=== PATIENT | female | born 1980 | race Caucasian/White ===

== ENCOUNTER 2016-05-05 15:30 | Inpatient (IN) | payer OTHER ==
[2016-05-02 16:05] VITALS: BMI 29.7
[2016-05-06] MEDS ORDERED: LACTATED RINGERS SOLUTION 1,000 ML IV SCH (12:15)
--- NOTE | 2016-05-06 13:09 | HP ---
Past Medical History - Primary Care Physician PCP:: Deidre Soares - Admission Chief Complaint: 36 yrs , LMP 04/22/16 has multiple large fibroids , & menorrhagia is admitted today for multiple myomectomy possible hysterctomy if necessary . History of Present Illness: patient was diagnosed large fibroids during . she had uneventful course during pregn regarding fibroids . she had primary c/section due to failed induction of labor at 41.3 weeks gestation om 07/30/15 During c/section I noted Right side 5 cm submucous fibroid, Left side above lower segment [id number] cm intramural fibroid, & large subserosal & intramural fundal fibroid 12 cm . .Post she did not c/o pain but she c/o heavy periods with clots. she continued to take her pmv & iron pills . 12/29/15 pelvic tvs was done which was reported as large ut 18.6x12x7.8cm . 3 suzy fibroids , fundal fiibroid 94x8.5x6.6 cm . 04/12/16 Pelvic MRI ut 51.6x 11.6x 9.6 cm /Anterior myoma rt of the midline 9.0x8.5x6.2cm . 2nd large myoma anteriorproximal to lower segment 5.5x5.1x5.0 cm , 3rd posterior 1.7 cm subserosal pyoma, 4th in posterior uterine body 1.6cm in size . Left adnexa shows 3-4 cm unilocular cyst , follocular cysts last pa 10/29/14 NILM past MH 28-30 days x5-6 days, heavy mild cramps menarche at age 10 yrs History Source: Patient, Medical Record Limitations to Obtaining History: No Limitations - Past Medical History LOADING MANAGER: No: CVA Cardiovascular: Yes: HTN (for 3 yrs. during pregn she was on po aldomet. currently hydrochlorthiazide 12.5 mg po daily) Pulmonary: No: Asthma Gastrointestinal: Yes: Constipation Renal/: No: UTI ...: 2 ...Para: 1 ...Term: 1 ...Spon : 1 ...LMP: 04/22/16 Heme/Onc: Yes: Anemia (pt on po iron & vit) Infectious Disease: Yes: STD's (past h/o chlamydia , h/o HSV rx po valtex h/ o HPV) Psych: No: Addictions, Anxiety, Bipolar, Depression Endocrine: Yes: Other (h/o gstational diabetes duringlast , rx po glyburide 2.5 mg bid. post delivery BGM were normal) - Past Surgical History Past Surgical History: Yes: None, () Hx Myomectomy: No Hx Transabdominal Cerclage: No - Smoking History Smoking history: Never smoked Have you smoked in the past 12 months: No - Alcohol/Substance Use Hx Alcohol Use: No History of Substance Use: reports: None - Social History History of Recent Travel: No Home Medications - Allergies Allergies/Adverse Reactions: Allergies Allergy/AdvReac Type Severity Reaction Status Date / Time No Known Allergies Allergy Verified 07/29/15 12:29 - Home Medications Home Medications: Ambulatory Orders Vitamins (Sjr) - 1 tab PO DAILY 07/03/15 Acetaminophen [Tylenol .Regular Strength -] 650 mg PO Q4H PRN #0 tablet Ferrous Sulfate [Feosol] 325 mg PO BID ud 07/31/15 Hydrochlorothiazide [Hctz -] 12.5 mg PO DAILY 05/02/16 Ibuprofen [Motrin -] 600 mg PO TID PRN 05/02/16 Family Disease History - Family Disease History Family Disease History: Diabetes: Mother, Heart Disease: Father (hypertension ) Review of Systems - Review of Systems Constitutional: reports: No Symptoms Eyes: reports: No Symptoms HENT: reports: No Symptoms Neck: reports: No Symptoms Cardiovascular: reports: No Symptoms Respiratory: reports: No Symptoms Gastrointestinal: reports: No Symptoms Genitourinary: reports: Frequency (urination), Vaginal Bleeding (heavy periods) Breasts: reports: No Symptoms Reported Musculoskeletal: reports: No Symptoms Integumentary: reports: No Symptoms Neurological: reports: No Symptoms Endocrine: reports: No Symptoms Hematology/Lymphatic: reports: No Symptoms Psychiatric: reports: No Symptoms Physical Exam-MANAGER MOLECULAR Vital Signs: Selected Entries 05/02/16 16:00 Temperature 98.0 F Pulse Rate 100 H Blood Pressure 151/82 Weight 190 lb Constitutional: Yes: Well Nourished, No Distress Eyes: Yes: WNL HENT: Yes: WNL Neck: Yes: WNL Cardiovascular: Yes: WNL Respiratory: Yes: WNL Gastrointestinal: Yes: WNL, Normal Bowel Sounds ...Rectal Exam: Yes: WNL, Other Pelvis: Yes: Mass (16- weeks abdominopelvic mass palpable firm mobile non teder) External Genitalia: Yes: Normal Internal Exam Deferred: Yes Vaginal Exam: Yes: Normal. No: Bleeding, Condyloma Cervix: Yes: Normal. No: Bleeding, Condyloma Uterus: Yes: Anteverted, Enlarged (16.weeks, irregular, multiple fibroids) Adnexa: Not Palpable: Bilateral Breast(s): Yes: WNL Musculoskeletal: Yes: WNL Extremities: Yes: WNL. No: Calf Tenderness Edema: No Integumentary: Yes: Incision (old pfannensteil scar) Neurological: Yes: WNL, Alert, Oriented ...Motor Strength: WNL Psychiatric: Yes: WNL, Alert, Oriented Labs: Laboratory Tests 07/29/15 07/29/15 07/29/15 12:10 12:10 12:10 WBC RBC Hgb Hct Plt Count Neutrophils % Lymphocytes % Monocytes % Eosinophils % Basophils % Retic Count 1.42 Haptoglobin 121 INR PTT (Actin FS) 26.9 Sodium Potassium Chloride Carbon Dioxide BUN Creatinine Random Glucose Calcium Total Bilirubin AST ALT Alkaline Phosphatase Total Protein Albumin Beta HCG, Quant Urine Glucose (UA) Urine Ketones 05/03/16 05/03/16 05/03/16 11:00 11:05 11:05 WBC 6.0 RBC 4.23 D Hgb 12.7 D Hct 37.4 D Plt Count 299 D Neutrophils % 58.4 D Lymphocytes % 31.5 D Monocytes % 9.1 Eosinophils % 0.7 Basophils % 0.3 Retic Count Haptoglobin INR PTT (Actin FS) Sodium 139 Potassium 3.9 Chloride 104 Carbon Dioxide 26 D BUN 16 Creatinine 0.8 Random Glucose 104 D Calcium 9.3 Total Bilirubin 0.5 AST 12 L D ALT 16 Alkaline Phosphatase 63 Total Protein 7.5 Albumin 4.0 Beta HCG, Quant < 1.0 Urine Glucose (UA) Negative Urine Ketones Negative 05/03/16 11:05 WBC RBC Hgb Hct Plt Count Neutrophils % Lymphocytes % Monocytes % Eosinophils % Basophils % Retic Count Haptoglobin INR 1.11 PTT (Actin FS) Sodium Potassium Chloride Carbon Dioxide BUN Creatinine Random Glucose Calcium Total Bilirubin AST ALT Alkaline Phosphatase Total Protein Albumin Beta HCG, Quant neg Urine Glucose (UA) Urine Ketones Imaging - Results Chest X-ray: Report Reviewed Ultrasound: Report Reviewed MRI: Report Reviewed EKG: Report Reviewed Problem List - Problem (1) Uterine fibroid Code(s): D25.9 - LEIOMYOMA OF UTERUS, UNSPECIFIED Qualifiers: Uterine leiomyoma location: intramural Qualified Code(s): D25.1 - Intramural leiomyoma of uterus (2) Menorrhagia Code(s): N92.0 - EXCESSIVE AND FREQUENT MENSTRUATION WITH REGULAR CYCLE Assessment/Plan 36 yrs , previous c/s with multiple large myoma uterus with menorrhagia . plan; Abdominal Multiple Myomectomy & possible hysterectomy
[2016-05-06] MEDS ORDERED: VASOPRESSIN 20 UNITS/ML VIAL IV ONE (13:35)
[2016-05-06] MEDS ORDERED: MIDAZOLAM HCL 2 MG/2 ML SINGLE DOSE VIAL ONE ×2 (14:05)
[2016-05-06] MEDS ORDERED: ROPIVACAINE HCL 0.5% 30ML VIAL ONE (14:05)
[2016-05-06] MEDS ORDERED: PROPOFOL 20 ML ONE ×2 (14:34→16:04)
[2016-05-06] MEDS ORDERED: ROCURONIUM BROMIDE 50 MG/5 ML VIAL ONE ×4 (14:34→14:36)
[2016-05-06] MEDS ORDERED: ceFAZolin SODIUM 1 GM VIAL ONE (14:34)
[2016-05-06] MEDS ORDERED: ceFAZolin SODIUM 1 GM VIAL IVPB ONE (14:47)
[2016-05-06] MEDS ORDERED: DEXAMETHASONE SOD PHOSPHATE 4 MG/1 ML VIAL ONE (14:59)
[2016-05-06] MEDS ORDERED: KETOROLAC TROMETHAMINE 30 MG/1 ML VIAL ONE (15:38)
[2016-05-06] MEDS ORDERED: GLYCOPYRROLATE 0.2 MG/1 ML VIAL ONE (15:38)
[2016-05-06] MEDS ORDERED: NEOSTIGMINE METHYLSULFATE 0.5 MG/ML - 10 ML MDV ONE (15:38)
[2016-05-06] MEDS ORDERED: IBUPROFEN 800 MG/8 ML IJ IVPB PRN (16:15)
[2016-05-06] MEDS ORDERED: IBUPROFEN 600 MG TABLET (FP) PO PRN (16:23)
[2016-05-06] MEDS ORDERED: ACETAMINOPHEN 325 MG TABLET (FP) PO PRN (16:23)
[2016-05-06] MEDS: HYDROmorphone HCL CARPU-JECT 2 MG/1 ML DISP.SYRIN IVPUSH PRN ×4 (16:25→17:29)
[2016-05-06] MEDS ORDERED: ONDANSETRON 4 MG/2 ML VIAL IVPUSH PRN (16:26)
[2016-05-06] MEDS ORDERED: PROMETHAZINE HCL 25 MG/1 ML VIAL IVPUSH PRN (16:26)
--- NOTE | 2016-05-06 16:29 | OP ---
Operative Note - Note: Operative Date: 05/06/16 Pre-Operative Diagnosis: multiple large fibroids & menorrhagia Operation: Abdominal Multiple Myomectomy Findings: uterus large 16 weeks size . large 9 cm fundal fibroid which was intramural entering cavity on lt side , it was bilobed fibroid . 5 cm fibroid above isthmus towards right side of midline removed small 2cm posterior subserosal fibroid in upper body medial to lt cornual end removed Surgeon: Deidre Soares Manager Bridge: David Palm Anesthesiologist/PAPER CONE DRYING MACHINE OPERATOR: Amanda Coleman Anesthesia: General Specimens Removed: fibroids 2 large & 1 small Estimated Blood Loss (mls): 200 Drains, Volume Out (mls): 250 (nguyen, wilfrido color ) Fluid Volume Replaced (mls): 1,100 (iv ancef 1gm prior to incision ) Operative Report Dictated: Yes
[2016-05-06] MEDS ORDERED: IBUPROFEN 800 MG/8 ML IJ IVPB ONE (16:33)
[2016-05-06] MEDS ORDERED: HYDROmorphone HCL CARPU-JECT 2 MG/1 ML DISP.SYRIN ONE (17:18)
[2016-05-06] MEDS ORDERED: INFLUENZA VACCINE 45 MCG/0.5 ML (MDV 16-17) IM ONE (18:42)
[2016-05-06] MEDS: HYDROmorphone HCL CARPU-JECT 1 MG/1 ML DISP.SYRIN IVPB PRN (22:21)
[2016-05-06] MEDS: CEFAZOLIN (PRE-DOCKED) 50 ML IVPB SCH (22:53)
[2016-05-07] MEDS: HYDROmorphone HCL CARPU-JECT 1 MG/1 ML DISP.SYRIN IVPB PRN (05:02)
[2016-05-07] MEDS: CEFAZOLIN (PRE-DOCKED) 50 ML IVPB SCH ×2 (06:00→14:15)
[2016-05-07 09:16] LABS: BASOPHIL 0.1 % (0-2.0); EOSINOPHIL 0.1 % (0-4.5); MCH 30.3 pg (25.7-33.7); MCHC 34.2 g/dl (32.0-36.0); MEAN CELL VOLUME 88.5 fl (80-96); MEAN PLT VOLUME 8.1 fl (7.5-11.1); PLATELET COUNT 216 K/MM3 (134-434); RDW 13.2 % (11.6-15.6); WHITE BLOOD COUNT 9.5 K/mm3 (4.0-10.0)
--- NOTE | 2016-05-07 09:53 | PN ---
Progress Note (short form) - Note Progress Note: pod 1 s/p abdominal myomectomy, ,has mild low abdominal pain, CBC, BMP 05/07/16 08:35 Last Vital Signs Temp Pulse Resp BP Pulse Ox 97.9 F 64 18 107/54 99 05/07/16 05:11 05/07/16 05:11 05/07/16 05:11 05/07/16 05:11 05/06/16 21:55 abdomen soft, no distension, incision dry no vaginal bleeding no calf tenderness plan ambulate, advance diet, pain management
[2016-05-07] MEDS: oxyCODONE HCL 5 MG TABLET PO PRN ×4 (09:54→23:02)
[2016-05-07] MEDS: ACETAMINOPHEN 325 MG TABLET (FP) PO PRN ×3 (09:54→23:03)
[2016-05-07] MEDS ORDERED: INFLUENZA VACCINE 60 MCG/0.5 ML (P/F DISP.SYRIN 16-17) IM ONE (12:00)
--- NOTE | 2016-05-07 12:10 | PN ---
Progress Note (short form) - Note Progress Note: Post anesthesia assessment. S/P abdominal myomectomy in [place], with TAP block. POD# 1. Patient seen and examined. No post anesthesia related complications.VSS. Signed off.
--- NOTE | 2016-05-07 16:50 | PN ---
Progress Note (short form) - Note Progress Note: post op day #1 pt is oob pain scale 7/10. c/o pain more on rt side of abdomen voiding well c/o blood in urine when she passes urine passing flatus tolerating po clear liquids well Selected Entries 05/07/16 13:59 Temperature 97.3 F L Pulse Rate 94 H Blood Pressure 111/66 Laboratory Tests 05/03/16 11:05 Beta HCG, Quant < 1.0 RS cta p/a soft , not distended. mild tenderness BS active dressing dry no vaginal bleeding no calf tenderness Laboratory Tests 05/07/16 08:35 WBC 9.5 D Hgb 9.9 L D Hct 29.0 L D Plt Count 216 D Neutrophils % 73.0 D Lymphocytes % 20.4 D Monocytes % 6.4 ass s/p myomectomy, anemia plan : advance diet encourage deep breathing, ambulation check U/A. if afebrile & stable, may consider discharge tomorrow in PM Problem List - Problems (1) Uterine fibroid Code(s): D25.9 - LEIOMYOMA OF UTERUS, UNSPECIFIED Qualifiers: Uterine leiomyoma location: intramural Qualified Code(s): D25.1 - Intramural leiomyoma of uterus (2) Menorrhagia Code(s): N92.0 - EXCESSIVE AND FREQUENT MENSTRUATION WITH REGULAR CYCLE
[2016-05-07] MEDS ORDERED: BISACODYL 10 MG SUPP.RECT RC PRN (17:20)
[2016-05-07] MEDS: SIMETHICONE 80 MG TAB.CHEW (FP) PO PRN ×2 (18:42→23:02)
[2016-05-07 19:56] LABS: URINE APPEARANCE CLEAR; URINE BILIRUBIN NEGATIVE (NEGATIVE); URINE COLOR STRAW; URINE GLUCOSE (UA) NEGATIVE (NEGATIVE); URINE KETONE NEGATIVE (NEGATIVE); URINE LEUK ESTERASE NEGATIVE (NEGATIVE); URINE NITRITE NEGATIVE (NEGATIVE); URINE PROTEIN NEGATIVE (NEGATIVE); URINE UROBILINOGEN NEGATIVE E.U./dl (0.2-1.0)
[2016-05-07 20:04] LABS: URINE BLOOD 2+ (NEGATIVE)
[2016-05-07 20:06] LABS: URINE BACTERIA RARE /hpf (NONE SEEN); URINE WBC 1 /hpf (3-5)
[2016-05-07] MEDS ORDERED: DOCUSATE SODIUM 100 MG CAPSULE (FP) PO SCH (22:00)
[2016-05-08] MEDS: SIMETHICONE 80 MG TAB.CHEW (FP) PO PRN ×2 (06:52→10:47)
[2016-05-08] MEDS: oxyCODONE HCL 5 MG TABLET PO PRN ×2 (06:54→10:48)
[2016-05-08] MEDS: ACETAMINOPHEN 325 MG TABLET (FP) PO PRN ×2 (06:54→10:48)
[2016-05-08 08:34] VITALS: BP 105/54; PULSE 84; TEMP 97.9
--- NOTE | 2016-05-08 12:02 | PN ---
Progress Note (short form) - Note Progress Note: pt c/o pain on rt side more , pain scale 8/10 passing flatus , BM not done . no c/o hematuria Selected Entries 05/07/16 05:11 Temperature 97.9 F Pulse Rate 64 Blood Pressure 107/54 p/a soft , not distended, Bs active tenderness above incision & on rt dide steri strips in situ no oozing or erythema ass stable anemia counselled discharge today. Laboratory Tests 05/07/16 18:30 Urine Blood 2+ H Ur Leukocyte Esterase Negative Urine RBC None Urine WBC 1 Problem List - Problems (1) Uterine fibroid Code(s): D25.9 - LEIOMYOMA OF UTERUS, UNSPECIFIED Qualifiers: Uterine leiomyoma location: intramural Qualified Code(s): D25.1 - Intramural leiomyoma of uterus (2) Menorrhagia Code(s): N92.0 - EXCESSIVE AND FREQUENT MENSTRUATION WITH REGULAR CYCLE
--- NOTE | 2016-05-08 12:06 | DS ---
Physical Exam-SEMICONDUCTOR WAFERS ETCH OPERATOR Vital Signs: Vital Signs Temperature 97.9 F 05/08/16 08:32 Pulse Rate 84 05/08/16 08:32 Respiratory Rate 20 05/08/16 08:32 Blood Pressure 105/54 05/08/16 08:32 O2 Sat by Pulse Oximetry (%) 99 05/06/16 21:55 Constitutional: Yes: Well Nourished Eyes: Yes: WNL HENT: Yes: WNL Neck: Yes: WNL Cardiovascular: Yes: WNL Respiratory: Yes: WNL Gastrointestinal: Yes: WNL, Normal Bowel Sounds, Soft. No: Distention Renal/: Yes: Other (voiding without difficulty, no c/o pain). No: Vaginal Bleeding External Genitalia: Yes: Normal Internal Exam Deferred: No Breast(s): Yes: WNL Musculoskeletal: Yes: WNL Extremities: Yes: WNL. No: Calf Tenderness Edema: No Wound/Incision: Yes: Clean/Dry, Well Approximated, Steri Strips, Open to air. No: Bleeding, Excoriated Neurological: Yes: WNL ...Motor Strength: WNL Psychiatric: Yes: WNL Labs: CBC, BMP 05/07/16 08:35 Discharge Summary Reason For Visit: MULTIPLE FIBROIDS Current Active Problems Anemia (Acute) Menorrhagia (Acute) Uterine fibroid (Acute) Procedures: Principal: abdominal mutiple myomectomy Hospital Course: post op care iv fluids 24 hrsIV ancef pain management Condition: Stable - Instructions Diet, Activity, Other Instructions: oob, ambulate High iron diet . Drink, plenty po fluids ct incentive spirometer use . avoid sexual contact for 4 weeks rtc 1 week for f/u , wound check .Call [phone] for appt on Monday with Dr huber keep wound dry . If high fever, discharge from the wound etc , call the clinic or go to ER Referrals: Deidre Huber MD [Staff Physician] - Disposition: HOME - Home Medications Comprehensive Discharge Medication List: Ambulatory Orders Vitamins (Sjr) - 1 tab PO DAILY 07/03/15 Acetaminophen [Tylenol .Regular Strength -] 650 mg PO Q4H PRN #0 tablet Ferrous Sulfate [Feosol] 325 mg PO BID ud 07/31/15 Hydrochlorothiazide [Hctz -] 12.5 mg PO DAILY 05/02/16 Ibuprofen [Motrin -] 600 mg PO TID PRN 05/02/16 Acetaminophen [Tylenol .Regular Strength -] 650 mg PO Q4H PRN #0 tablet Acetaminophen [Tylenol .Regular Strength -] 650 mg PO Q4H PRN #0 tablet Ibuprofen [Motrin -] 600 mg PO TID PRN #30 tablet 05/07/16 Oxycodone HCl/Acetaminophen [Percocet 5-325 mg Tablet] 1 tab PO Q6H #20 tablet MDD 4 tabs a day 05/07/16
--- NOTE | 2016-05-09 13:38 | OP ---
DATE OF OPERATION: 05/06/2016 PREOPERATIVE DIAGNOSIS: Multiple myomas with menorrhagia. OPERATION DONE: Abdominal multiple myomectomy. SURGEON: Deidre Soares MD RAILROAD ACCOUNTANT: David Palm MD ANESTHESIOLOGIST: Amanda Coleman MD FINDINGS: This is a 36-year-old 2, para 1-0-1-1, previous in July 2015. She was diagnosed with multiple myomas, a large fundal 9- to 10-cm fibroid and on the right side, another 5-cm intramural fibroid and posterior fibroid. Patient has been having heavy bleeding, so patient was taken for a myomectomy. Her LMP was on April 22, 2016. PROCEDURE: Patient was taken to operating room table. General anesthesia was given. A Recinos catheter was placed and abdomen was painted and draped in usual manner. A Pfannenstiel incision was made to previous scar. The skin and subcutaneous tissue and anterior rectus sheath were incised transversely; bleeding points were clamped and cauterized. Rectus muscle was from the rectus sheath. Parietal peritoneum was opened vertically, and then uterus with the fibroid was brought out of the incision and intestinal packing was put. Anatomy was determined. Both tubes and ovaries were normal. Proximity of fibroid at fundus with the adnexa was noted. . Anteriorly, a large fibroid, which was running transversely in the fundal area and then another small fibroid 5 cm at base on the right side above the isthmus was seen. Vasopressin was infiltrated in the midline of the fibroid, and an incision was made with cautery, and capsule was held with the Allis clamps. The fibroid was enucleated from its attachments, and the base of the fibroid's bleeding points were clamped with a armani clamp, then proceeded with the fundal fibroid, which was over 10 cm and running transversely, then again, in the midline of the fibroid, vasopressin was infiltrated, and an incision was made in the midline. All around the fibroid was enucleated with blunt and sharp dissection , and it appeared it was a bilobed fibroid, and we had entered the endometrial cavity by enucleating that fibroid. Then deep sutures were taken in multiple layers. About 3 layers were taken to close the redundant space. Vicryl 2-0 on a V-Loc stitch were taken. Continuous running sutures were taken until the serosa of the uterus was reached, and then the serosa of the uterus was then closed with a baseball suture. Hemostasis was achieved to further ensure the hemostasis. About 4 mattress sutures interrupted with a Biosyn 0 suture were taken. Then posterior fibroid, which was about 2 cm in the subserosal medial to the left cornual, and it was pushed up superiorly and then with cautery, serosa was cut, and the fibroid was enucleated and then space was closed with a Vicryl 0 suture, and then also, the uterine serosa was closed with a Vicryl 0 suture. Hemostasis was achieved. Irrigation was done. Sponge, instrument and needle counts were correct, and the uterine incision was covered with Interceed, and then the closure of the abdomen was done; parietal peritoneum was closed with a 2-0 Vicryl, and the muscles were approximated together with a 2-0 Vicryl suture. Anterior rectus sheath was closed with a Vicryl 0 continuous suture, and the hemostasis was checked below the anterior rectus sheath before this closure, then the subcutaneous tissue was approximated with 2-0 Vicryl also, and then interrupted sutures were taken with a 3-0 Vicryl on a straight needle. Pressure dressing was given. Patient tolerated procedure well , and she was transferred to the recovery room in stable condition. Estimated blood loss was 200 mL, and urine output was 250 mL; it was wilfrido color. She received 1 g of IV Ancef prior to the incision and a total of 1100 mL of crystalloid solution. Moisés [id number] MTDD
--- NOTE | 2016-05-11 13:12 | PATH ---
Surgical Pathology Report Patient Name: TEA SHEPHERD [facility]. Rec. #: [id number] /Age/Gender: 1980 (Age: 36) / F Account: [id number] Location: [facility] OBS/ELECTRONIC NEWS GATHERING EDITOR Taken: 05/06/2016 Received: 05/09/2016 Reported: 05/11/2016 Physicians: Deidre Soares M.D. Specimen(s) Received UTERINE FIBROID Clinical History Multiple fibroids Final Diagnosis UTERINE FIBROIDS, ABDOMINAL MYOMECTOMY: LEIOMYOMATA WITH DEGENERATIVE CHANGES (LARGEST 10.0 CM). Electronically Signed Nolan Huynh M.D. Gross Description Received in formalin, labeled "uterine fibroids" is a 409 g aggregate of 3 bowen, firm to rubbery nodules, consistent with fibroids. The specimens range from 2.0-10.0 cm in greatest dimension. Sectioning reveals diffuse necrosis within the medium and larger fibroids. Occupational Health Technician sections are submitted in 8 cassettes as follows: 1-smallest fibroid; 2-3-medium fibroid; 4-8-largest fibroid. /05/09/2016 [facility]05/09/2016
== END 2016-05-08 12:55 | disposition home or self-care (01) | DRG 519 ==
LOC: EDSTATUS 15:30 → JSAMEDAYSX 05-06 05:08 → J3W 05-06 18:21
PROVIDERS: ADMIT Obstetrics & Gynecology; ATTEND Obstetrics & Gynecology
PROC: 0UB90ZZ Excision of Uterus, Open Approach (ICD-10-PCS; principal; 2016-05-06 15:00)
DX: D25.1 Intramural leiomyoma of uterus (principal); D25.2 Subserosal leiomyoma of uterus; D25.0 Submucous leiomyoma of uterus; N92.0 Excessive and frequent menstruation with regular cycle; D64.9 Anemia, unspecified
CPT/HCPCS: 36415; 81003; 81015; 85025; 88305-TC; 90686; 94010; 94760; G0008